=== PATIENT | male | born 1940 | race Caucasian/White ===

== ENCOUNTER 2017-02-14 17:30 | Inpatient (IN) | payer MEDICARE, BC, MEDICAID ==
[~2017-02-14] VITALS: Ht 172.7 cm; Wt 79.4 kg
--- NOTE | ~2017-02-14 | HP ---
PATIENT'S NAME: ANICETO BRAR [facility] AGE: 76 Y [address] ROOM: [id number] [place], [place] [address] [facility] ADMIT DATE: 02/14/2017 History & Physical DISCHARGE DATE: FAMILY PHYSICIAN: PHYSICIAN, UNKNOWN ATTENDING PHYSICIAN: Shahzad Russ DATE OF SERVICE: CHIEF COMPLAINT: Tarry stools. HISTORY OF PRESENT ILLNESS: The patient is a 76-year-old male who has been transferred to [facility] from [place]. He has an extensive past medical history. Most significant is for history of a previous GI bleed from small bowel AV malformations, which were endoscopically treated at [facility] several years ago. He also has a past medical history of DVT/PE and was on anticoagulation up until 1 week ago. At that point, he noted black tarry stools and was also noted to have a hemoglobin in the 7s, which is below his baseline of 10 to 11. At that point, his PCP discontinued his Coumadin and gave him a transfusion. This was about 5 days ago. He received 2 units. Today, he returned to hospital in [place] and was found to have a persistently low hemoglobin of 7.1. This was originally from hemoglobin of 7.3, after which he got the 2 units. He received 2 additional units of PRBCs and was transferred to [facility]. Here, his most latest hemoglobin is 8.3. The patient endorses bloody and watery stools as well as foul-smelling flatus. Denies any chest pain, but does admit to some weakness with exertion. No chest pain, nausea, vomiting, or diarrhea. No syncope. REVIEW OF SYSTEMS: All systems have been reviewed and negative aside from pertinent positives mentioned above. PAST MEDICAL HISTORY: 1. End-stage renal disease, on dialysis, Tuesdays, , and Fridays, this is due to cyclosporine toxicity. 2. 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 3. Questionable myelodysplastic syndrome. 4. Chronic anemia, multifactorial. 5. Status post pacemaker. 6. Atrial fibrillation. 7. DVT. 8. Long-term use of anticoagulation. 9. Coronary artery disease, status post 4-vessel CABG. PATIENT'S NAME: ANICETO BRAR [facility] AGE: 76 Y [address] ROOM: [place] [address] LOCATION: GPCU ADMIT DATE: 02/14/2017 History & Physical DISCHARGE DATE: FAMILY PHYSICIAN: PHYSICIAN, UNKNOWN ATTENDING PHYSICIAN: Shahzad Russ 10. Status post shoulder replacement. SOCIAL HISTORY: The patient is and has no active toxic habits. FAMILY HISTORY: Reviewed and is noncontributory due to advanced age and multiple medical problems. CURRENT MEDICATIONS: 1. Extra-Strength Tylenol. 2. Allopurinol. 3. B2 vitamin. 4. Cyclosporine 100 b.i.d. 5. Colace. 6. Levothyroxine 100. 7. Melatonin. 8. Multivitamin. 9. Pantoprazole. 10. Rosuvastatin. 11. Vitamin D3 complex. PHYSICAL EXAMINATION: VITAL SIGNS: Temperature 97.8, pulse is 63, respirations 16, blood pressure 107/62, and satting 100% on room air. GENERAL: Well-developed, well-nourished elderly male, in no acute distress. NEUROLOGICAL: Exam is nonfocal. EYES: Exam shows pupils are equal and reactive to light. LYMPHATICS: No cervical lymphadenopathy. ENDOCRINE: Exam shows no thyromegaly. LUNGS: Clear to auscultation. HEART: Rate is irregular with no appreciable murmurs, gallops, or rubs. ABDOMEN: Soft, nontender, nondistended. : No costovertebral angle tenderness. VASCULAR: A 2+ pedal pulses. MUSCULOSKELETAL: Exam is unremarkable. SKIN: Warm and dry. PSYCHIATRIC: Reveals appropriate mood, cognition, and affect. NEUROLOGIC: Exam is nonfocal. LABORATORY DATA: Studies available so far are a complete metabolic panel significant for a BUN of 55, creatinine of 5.1, CBC with a white count of 5.8, hemoglobin of 8.3, platelets of 178, unremarkable differential. PATIENT'S NAME: ANICETO BRAR [facility] AGE: 76 Y [address] ROOM: [address] [address] LOCATION: GPCU ADMIT DATE: 02/14/2017 History & Physical DISCHARGE DATE: FAMILY PHYSICIAN: PHYSICIAN, UNKNOWN ATTENDING PHYSICIAN: Shahzad Russ ASSESSMENT AND PLAN: This is a 76-year-old male with suspected lower gastrointestinal bleed. The patient will be admitted to PCU. We will repeat his hemoglobin in the morning. We will start him on intravenous PPIs. We will request a Gastroenterology consultation in the morning and keep him n.p.o. in case an esophagogastroduodenoscopy is contemplated. 1. End-stage renal disease. We will get a Nephrology consultation as the patient is due for dialysis tomorrow. 2. Long-term use of anticoagulants. We will hold that in the setting of gastrointestinal bleed. 3. Cyclosporine for liver transplant and we will continue that. Additional management will depend on clinical course. Time dedicated to this patient encounter is 35 minutes. MD KENA MAGALLON/juan /[id number] D: 449 T: 020 HISTORY & PHYSICAL
--- NOTE | ~2017-02-14 | CON ---
PATIENT'S NAME: ANICETO BRAR [facility] AGE: 76 Y [address] ROOM: [place] [address] LOCATION: GPCU ADMIT DATE: 02/14/2017 Consultation DISCHARGE DATE: FAMILY PHYSICIAN: PHYSICIAN, UNKNOWN ATTENDING PHYSICIAN: Shahzad Russ DATE OF CONSULTATION: 02/15/2017 REFERRING PHYSICIAN: Charlotte Rocha REQUESTING PHYSICIAN: Shahzad Russ MD REASON FOR CONSULTATION: End-stage renal failure. The patient is due for dialysis treatment. HISTORY OF PRESENT ILLNESS: The patient is a 76-year-old white male with end-stage renal failure from chronic use of cyclosporine and cyclosporine nephrotoxicity. He is status post liver transplantation. He has been on hemodialysis on Sunday, , and Sunday in [place], [place]. The patient got admitted to the hospital with GI bleed. His hemoglobin was down to 7.9. I have been asked to see him because he is due for his routine dialysis treatment. REVIEW OF SYSTEMS: GENERAL: He denies any fever, chills, or rigors. HEENT: Denies any sore throat or sinus congestion. CARDIOVASCULAR: Denies any chest pain. RESPIRATORY: Denies any shortness of breath, cough, or wheezing. GASTROINTESTINAL: He has been noticing blood in the stool. GENITOURINARY: Denies any dysuria. He is a dialysis patient. MUSCULOSKELETAL: Denies any joint pain or swelling. SKIN: Denies any allergies or hay fever. ENDOCRINE: Denies any heat or cold intolerance. PSYCHIATRIC: Denies any sadness, crying spells, poor concentration, or panic attack. ALLERGIES: ALLERGIC TO NYLON SUTURES. MEDICATIONS: 1. Levothyroxine 100 mcg a day. 2. Pantoprazole 40 mg a day. 3. Rosuvastatin 10 mg a day. 4. Stool softener. 5. Docusate sodium 250 mg a day. PATIENT'S NAME: ANICETO BRAR [facility] AGE: 76 Y [address] ROOM: [address] [address] LOCATION: GPCU ADMIT DATE: 02/14/2017 Consultation DISCHARGE DATE: FAMILY PHYSICIAN: PHYSICIAN, UNKNOWN ATTENDING PHYSICIAN: Shahzad Russ 6. Cyclosporine 100 mg twice a day. 7. Allopurinol 200 mg every day. 8. Vitamin B complex once a day. 9. Melatonin 3 mg a day. 10. Acetaminophen with diphenhydramine one tablet p.r.n. 11. Multivitamin every day. PAST MEDICAL HISTORY: End-stage renal failure, on hemodialysis, cyclosporine nephrotoxicity, status post liver transplantation, coronary artery disease, blood loss anemia, GI bleed, deep vein thrombosis, hypothyroidism, chronic atrial fibrillation, and history of skin cancer. PAST SURGICAL HISTORY: Left upper arm primary radiocephalic AV fistula placement by Dr. Holland in 2011, back surgery in 1985, coronary artery bypass grafting in 1999, pacemaker implantation in 2013, cardiac catheterization, kidney stone removal, rotator cuff repair, ventral hernia repair, sinus surgery, cataract extraction, teeth extraction, total shoulder replacement, liver transplantation, and skin biopsies. FAMILY HISTORY: Sister had uterine cancer. Another sister had breast cancer. Father of myocardial infarction. SOCIAL HISTORY: The patient lives at home. He is . The patient also is retired. He smoked occasionally cigars for 25 years. Currently, a nonsmoker. PHYSICAL EXAMINATION: GENERAL APPEARANCE: A 76-year-old, thin, white male; lying in the hospital bed; not in acute distress. VITAL SIGNS: Temperature 97.7, pulse 70, systolic blood pressure 118 and diastolic 68. HEENT: Head: Normocephalic. Pupils are round and equal. Normal eyelids and pale conjunctivae. Oral cavity clear. Moist mucosa. Poor dentition. NECK: Trachea is central. No thyromegaly. Flat jugular veins. CARDIAC: Heart sounds are audible in all the areas. No gallop or murmur. Pulses irregularly irregular. LUNGS: Bilaterally clear to auscultate anteriorly. ABDOMEN: Soft and nontender. Cannot palpate any liver or spleen. EXTREMITIES: He has no clubbing or cyanosis. SKIN: No sign of vasculitis. LYMPHATIC: I did not examine the lymphatics. HIGHER PSYCHIATRIC FUNCTION: He has normal speech and memory. The patient PATIENT'S NAME: ANICETO BRAR [facility] AGE: 76 Y [address] ROOM: [place] [address] [facility] ADMIT DATE: 02/14/2017 Consultation DISCHARGE DATE: FAMILY PHYSICIAN: PHYSICIAN, UNKNOWN ATTENDING PHYSICIAN: Smolik,Shahzad J has a left forearm AV fistula with pulse and thrill. LABORATORY DATA: Sodium 139, potassium 4.4, chloride 98, bicarbonate of 30, calcium of 81, and BUN of 55. Albumin of 2.6. Phosphorus of 4.5. Hemoglobin 7.9, hematocrit 24.2, WBC 5.8, and platelet count 163. ASSESSMENT: 1. End-stage renal failure. The patient is due for dialysis treatment. 2. Blood loss anemia. 3. Gastrointestinal bleed. 4. Status post liver transplant. 5. Cyclosporine nephrotoxicity. 6. Hypothyroidism. PLAN: I am going to arrange for his dialysis as soon as possible. He will be dialyzing for 4 hours on 2K 2.2 calcium bath. We will plan to ultrafiltrate about 1 to 2 L without dropping his systolic blood pressure. Since his hemoglobin is low, we are going to increase his erythropoietin to 10,000 subcutaneous or IV with each treatment. I will check his iron studies. I would like to thank Dr. Russ for allowing me to participate in this patient's care. M MD JACKI HERNANDEZ/juan /[id number] d: 02/15/17 1702 t: 02/16/17 1240, CONSULTATION REPORT
--- NOTE | ~2017-02-14 | OR ---
PATIENT'S NAME: ANICETO BRAR [facility] AGE: 76 Y [address] ROOM: [place] [address] LOCATION: GPCU ADMIT DATE: 02/16/2017 OR/Procedure Report DISCHARGE DATE: FAMILY PHYSICIAN: Tanner Zamorano MD ATTENDING PHYSICIAN: Shahzad Russ SURGEON: Henna Whaley MD SENIOR FINANCIAL CONSULTANT: DATE OF PROCEDURE: 02/16/2017 PROCEDURE PERFORMED: Esophagogastroduodenoscopy with biopsy. INDICATIONS FOR PROCEDURE: Suspected bleeding, history of AVMs. MEDICATIONS: Please see Anesthesiology record for details. CONSENT: The risks/benefits/alternatives were discussed and the patient or his power of dixonac operator expressed understanding and agreed to proceed. Informed consent was obtained and placed in the chart. Time-out was completed prior to starting the procedure. PROCEDURE: Patient was placed in the left lateral decubitus position. One- lead EKG monitoring was used along with intermittent blood pressure monitoring and pulse oximetry. Bite block was placed in the patient's mouth. The above medications were given and titrated to response. Once adequate sedation was completed, the endoscope was passed through the patient's mouth into the posterior oropharynx. The endoscope was then passed into the esophagus, stomach and duodenal bulb. The duodenum was examined through the third portion. The endoscope was then withdrawn into the stomach. In the stomach, retroflexion was completed. The scope was then straightened and withdrawn from the patient. The patient tolerated the procedure well. There were no complications. SUMMARY OF FINDINGS: 1. Normal esophagus. 2. Gastric polyps, three. The largest of which was biopsied. 3. Normal duodenum. 4. No blood seen throughout the upper GI tract. ASSESSMENT AND PLAN: Rectal bleeding and anemia: Nothing seen on esophagogastroduodenoscopy, we will proceed with colonoscopy. Henna WHALEY MD PATIENT'S NAME: ANICETO BRAR [facility] AGE: 76 Y [address] ROOM: [place] [address] LOCATION: GPCU ADMIT DATE: 02/16/2017 OR/Procedure Report DISCHARGE DATE: FAMILY PHYSICIAN: Tanner Zamorano MD ATTENDING PHYSICIAN: Shahzad Russ/juan /[id number] d: 02/16/171952 t: 03/23/17 0843, OPERATIVE SUMMARY
--- NOTE | ~2017-02-14 | CON ---
PATIENT'S NAME: ANICETO BRAR [facility] AGE: 76 Y [address] ROOM: [id number] [place], [place] [address] LOCATION: GPCU ADMIT DATE: 02/14/2017 Consultation DISCHARGE DATE: FAMILY PHYSICIAN: PHYSICIAN, UNKNOWN ATTENDING PHYSICIAN: Shahzad Russ DATE OF CONSULTATION: 02/15/2017 REFERRING PHYSICIAN: Charlotte Rocha REASON FOR CONSULTATION: GI bleed. HISTORY OF PRESENT ILLNESS: This is a very pleasant 76-year-old male, who was transferred from [facility] to [facility]. The patient has an extensive past medical history significant for history of upper, lower, and small bowel AV malformation bleeding that was treated endoscopically at [facility] in 2011. The patient is also status post liver transplant, completed in 1992 as he does admit to previous alcohol use though likely contracted hepatitis C from blood transfusion completed in the . The patient has done well status post transplant. He does state for the past 3 weeks he has been experiencing blood in his stool. When asked for description, he did note that originally it was diarrhea with a dark brown color. At that time, he began taking Pepto-Bismol that did turn his stools more black. He then started seeing more bright red blood. When flushing the stool. He denies any abdominal pain associated with this. He returned to the hospital in [place]. Today, was found to have a hemoglobin of 7.1. He previously was on Coumadin as this was stopped last in lieu of the patient's bloody stools. The patient had previously received 2 units of packed red blood cells for hemoglobin of 7.32 with continued blood loss. When he was transferred to [facility], he received another 2 units of packed red blood cells. He denies any current chest pain, chest pressure. He does admit to weakness with exertion. He denies any associated nausea, vomiting, or abdominal pain. PAST MEDICAL HISTORY: History of upper GI bleed secondary to gastritis, history of small bowel AV malformation, history of large colon bleed though these details are unavailable to me, end-stage renal disease, on dialysis secondary to cyclosporine toxicity, status post liver transplant due to hepatitis C, completed in 1992, questionable myelodysplastic syndrome, chronic anemia, multifactorial, status post pacemaker, atrial fibrillation, DVT on long-term use of coagulation being Coumadin with the last dose being last , coronary artery disease, status post 4-vessel CABG. PAST SURGICAL HISTORY: PATIENT'S NAME: ANICETO BRAR [facility] AGE: 76 Y [address] ROOM: [id number] [place], [place] [address] [facility] AD[facility] DATE: 02/14/2017 Consultation DISCHARGE DATE: FAMILY PHYSICIAN: PHYSICIAN, UNKNOWN ATTENDING PHYSICIAN: Shahzad Russ Status post shoulder replacement, multiple upper endoscopies and colonoscopies with the last being 2 to 4 years ago, status post liver transplant, status post pacemaker, CABG 4-vessel. SOCIAL HISTORY: The patient is . He denies any alcohol use for the past 30 years. He denies any illicit drug use or tobacco use. FAMILY HISTORY: The patient denies any family history of gastrointestinal diseases to his knowledge. ALLERGIES: NYLON SUTURES. CURRENT MEDICATIONS: Please refer to the medication administration record. REVIEW OF SYSTEMS: A 10-point review of systems was completed. All were negative except for those identified in the history of present illness. PHYSICAL EXAMINATION: GENERAL: A very pleasant 76-year-old male, lying in bed, who appears to be in no acute distress. VITAL SIGNS: Temperature 97.7, pulse is 70, respirations of 15, blood pressure 118/68, oxygen saturation is 96% on room air. SKIN: [place], warm, dry. No jaundice. HEENT: Head is normocephalic and atraumatic. Pupils are equal, round, and reactive to light. Sclerae are clear. Nonicteric. Oral mucosa is pink and moist. No thyromegaly. NECK: Soft and supple. CARDIOVASCULAR: Regular. Normal S1, S2. RESPIRATORY: Respirations even and unlabored. LUNGS: Clear to auscultation. ABDOMEN: Soft, round, nontender, and nondistended. Bowel sounds positive x4 quadrants. MUSCULOSKELETAL: No muscle weakness or atrophy. EXTREMITIES: No clubbing, cyanosis, or edema. NEUROLOGIC: Grossly nonfocal. LABS AND DIAGNOSTICS: White blood cell count of 5.8, hemoglobin initially 8.3 with a decrease to 7.9 this morning, hematocrit of 24.2, platelet of 163. Chemistry panel includes a glucose of 100, BUN of 55, creatinine 5.1. Sodium 139, potassium of 4.5, chloride of 98, CO2 of 30. Albumin of 2.6, AST is 17, ALT of 17, alkaline PATIENT'S NAME: ANICETO BRAR [facility] AGE: 76 Y [address] ROOM: [id number] [place], [place] [address] [facility] AD[facility] DATE: 02/14/2017 Consultation DISCHARGE DATE: FAMILY PHYSICIAN: PHYSICIAN, UNKNOWN ATTENDING PHYSICIAN: Shahzad Russ phosphatase of 121, total bilirubin 0.9, phosphorus of 4.5. ASSESSMENT AND PLAN: Again, this is a very pleasant 76-year-old male with extensive past medical history including end-stage renal disease, currently on hemodialysis, status post liver transplant, chronic anemia as well as history of GI bleed. The patient has been on Coumadin, though states that the last dose was last secondary to noticeable blood in his stool for the past 3 weeks. It was discussed in depth with the patient regarding his history of GI bleed. At this time, we will go forth with upper endoscopy and colonoscopy for further evaluation. This most likely may be related to a lower gastrointestinal bleed though as well as his history of small bowel AV malformation though. Upper endoscopy and colonoscopy should be completed to rule out any obvious bleed. At this time, we given the patient soup prep for in preparation for the colonoscopy. Further recommendations to be given status post upper endoscopy and colonoscopy. The patient should be continued on PPI therapy at this time until the endoscopies are completed. Thank you for this consult. MELISSA CROWDER MD MMF/modl /[id number] d: 02/15/17 1556 t: 03/23/17 0845, CONSULTATION REPORT
--- NOTE | ~2017-02-14 | DS ---
PATIENT'S NAME: ANICETO BRAR [facility] AGE: 76 Y [address] ROOM: [address] [place], [place] [address] LOCATION: GPCU ADMIT DATE: 02/16/2017 Discharge Summary DISCHARGE DATE: 02/17/2017 FAMILY PHYSICIAN: Tanner Zamorano MD ATTENDING PHYSICIAN: Shahzad Russ ADMITTING DIAGNOSIS: Acute blood loss anemia secondary to lower gastrointestinal bleed. DISCHARGE DIAGNOSES: 1. Acute blood loss anemia secondary to lower gastrointestinal bleed. 2. Gastrointestinal bleed. SECONDARY DIAGNOSIS: 1. Persistent atrial fibrillation, present on admission. 2. Coronary artery disease, status post coronary artery bypass graft in the past, present on admission. 3. End-stage renal disease, present on admission. 4. Ischemic cardiomyopathy, compensated, present on admission. PROCEDURES: EGD and colonoscopy. Also hemodialysis. CONSULTATIONS: Nephrology and GI. HISTORY OF PRESENT ILLNESS: The patient is a 76-year-old male who has been transferred to our hospital from [place]. The patient has a past medical history significant for previous GI bleed from small bowel AV malformation, which was endoscopically treated at [facility] several years ago. He also has past medical history of paroxysmal AFib and DVT and was on anticoagulation until 1 week ago. The patient was noted to have tarry stool and low hemoglobin with hemoglobin of 7 from the baseline of 10. His Coumadin was discontinued by his primary care physician and was given blood transfusion. The patient was given multiple blood transfusions close to 4 in total at [facility] without improvement of his hemoglobin. The patient was also noted to have melanotic stool. The patient was transferred to our hospital for further care. HOSPITAL COURSE: The patient was admitted and had serial hemoglobin. The patient had EGD and colonoscopy on February 16, 2017. EGD was unremarkable. However, colonoscopy showed pinpoint AVM with bleed. The patient had an epi injection and a clip done on the site of AVM. No further bleeding was noted. The patient tolerated the procedure. The patient was transfused 1 unit of packed red blood cells during his admission. The patient was followed with serial hemoglobin. Serial hemoglobin was stable. The patient also has a history of persistent AFib and CAD, status post CABG. A long discussion was made with the patient. The patient elected to not be started on PATIENT'S NAME: ANICETO BRAR [facility] AGE: 76 Y [address] ROOM: [id number] [place], [place] [address] [facility] AD[facility] DATE: 02/16/2017 Discharge Summary DISCHARGE DATE: 02/17/2017 FAMILY PHYSICIAN: Tanner Zamorano MD ATTENDING PHYSICIAN: Shahzad Russ anticoagulation for now. The patient was started on aspirin. Discussed the case with GI, Dr. Whaley. Dr. Whaley okayed to start aspirin. Discussed about the risk of cessation of anticoagulation in the face of persistent AFib. The patient understands the risk and wants to evaluate the use of anticoagulation use with his primary care physician. To follow up with his primary care physician by next week. We will discharge the patient with repeat CBC as an outpatient. During his stay, the patient also had dialysis. CONDITION: Stable. DISPOSITION: Home. DISCHARGE MEDICATIONS: Please see medication list. DISCHARGE INSTRUCTIONS: To go to emergency department if the patient sees melanotic stool, dizzy, chest pain, and bloody stool. FOLLOW-UP: Follow up with primary care physician and GI. Greater than 30 minutes was spent on discharge planning. MD SHANNEN DUMONT/juan /[id number] d: 02/18/17 0317 t: 03/09/17 1523, DISCHARGE SUMMARY
--- NOTE | ~2017-02-14 | OR ---
PATIENT'S NAME: ANICETO BRAR [facility] AGE: 76 Y [address] ROOM: [id number] [place], [place] [address] LOCATION: GPCU ADMIT DATE: 02/16/2017 OR/Procedure Report DISCHARGE DATE: FAMILY PHYSICIAN: Tanner Zamorano MD ATTENDING PHYSICIAN: Shahzad Russ SURGEON: Henna Whaley MD SAW SUPERINTENDENT: DATE OF PROCEDURE: 02/16/2017 PROCEDURE PERFORMED: Colonoscopy with polypectomy and control of bleeding. MEDICATIONS: Please see Anesthesiology record for details. CONSENT: The risks/benefits/alternatives were discussed and the patient or his power of lithographers printer expressed understanding and agreed to proceed. Informed consent was obtained and placed on the chart. Time-out was completed prior to starting the procedure. PROCEDURE: Patient was placed in the left lateral decubitus position. One- lead EKG monitoring was used along with intermittent blood pressure monitoring and pulse oximetry. The above medications were given and titrated to response. Once adequate sedation was completed, rectal exam was performed. The colonoscope was then passed through the rectum, into the sigmoid colon. The scope was then passed through the descending, transverse and ascending colon. The scope was then passed into the cecum. The cecum was identified by the ileocecal valve and appendiceal orifice. The scope was then withdrawn. On withdrawal, the mucosa of the colon was examined. In the rectum, retroflexion was completed. The scope was then withdrawn from the patient. The patient tolerated the procedure well. There were no complications. SUMMARY OF FINDINGS: 1. A 4 mm sessile polyp located on the appendiceal orifice in the cecum. This was removed using the biopsy forceps. 2. Diverticulosis, mild. Scattered diverticula seen throughout the colon. The most prominent were in the sigmoid colon. 3. Blood was seen through up until from the rectum to the transverse colon, and then there was no blood seen on the right colon. 4. Sigmoid polyp 4 mm. Not removed, given the patient's bleeding. 5. About 5 cm distal to the polyp in the sigmoid colon, there was a pinpoint AVM that was actively oozing bright red blood. This was adjacent to a diverticula. Hemoclip was placed successfully without complications. This seemed to stop the bleeding. Epinephrine was injected to ensure no further bleeding. Hemostasis was achieved. The scope was then withdrawn from the colon. PATIENT'S NAME: ANICETO BRAR [facility] AGE: 76 Y [address] 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 I do not think this was a true diverticular bleed. The bleeding has stopped with hemoclip and epinephrine and I expect the patient to do well. We will advance diet as tolerated. Okay to stop octreotide drip. I suspect he will go home tomorrow if hemoglobin is stable. J MD KORY ENRIQUEZ/juan /[id number] d: 02/16/172023 t: 03/23/17 0848, OPERATIVE SUMMARY
[~2017-02-14 17:30] MED LIST changes: -ASPIRIN (CHILDR81 MG PO; -ICAPS PLUS1 EACH PO; -ICAPS TABLET1 EACH PO
--- NOTE | 2017-02-14 20:36 | NUR ---
Patient is a direct admit from [facility] for GI Bleed. 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 Hgb prior to unit at [facility] 7.1 post unit 7.3. After his paper route he went back and hgb was 7.1 again, this is when [facility] consulted for transfer. Patient arrives with 1 unit PRBC infusing and finished once on PCU. Patient is A/Ox3. VSS. Initial assessment completed. Patient's only allergy is to nylon sutures which cause him to itch. notified of patient arrival to floor will come to assess and write orders.
[2017-02-14] MEDS ORDERED: ICAPS PLUS1 EACH PO ×2 (21:21→21:25)
[2017-02-14] MEDS ORDERED: ICAPS TABLET1 EACH PO (21:24)
[2017-02-14] MEDS ORDERED: RENA-VITE RX T1 EACH PO (21:27)
[2017-02-14 22:58] LABS: BASOPHIL % 0.3 %; EOSINOPHIL # 0.1 K/uL (0.0-0.5); EOSINOPHIL % 2.2 %; HEMATOCRIT 25.8 % (37.0-53.0); HEMOGLOBIN 8.3 g/dL (11.0-16.0); IMMATURE GRANULOCYTE % 0.3 %; LYMPHOCYTE # 1.1 K/uL (0.8-4.0); LYMPHOCYTE % 19.4 %; MCH 33.1 pg (27.0-34.0); MCHC 32.2 gm/dL (32.0-36.5); MCV 102.8 fl (83.0-98.0); MONOCYTE % 17.3 %; MPV 10.5 fl (9.4-12.4); NEUTROPHIL # (ANC) 3.5 K/uL (1.4-9.0); NEUTROPHIL % 60.5 %; NRBC % 0 /100WBC (0-0.00); PLATELET COUNT 178 K/uL (150-450); RBC 2.51 M/uL (3.50-5.50); RDW-CV 20.3 % (11.9-14.6); WBC 5.8 K/uL (4.0-11.0)
[2017-02-14 23:16] LABS: ALBUMIN 2.6 gm/dL (3.5-5.0); ANION GAP 15.5 (10.0-19.0); CALCIUM 8.1 mg/dL (8.5-10.5); MAGNESIUM 2.2 mg/dL (1.8-2.6); PHOSPHORUS 4.5 mg/dL (2.5-4.9); POTASSIUM 4.5 mMol/L (3.7-5.1); TOTAL BILIRUBIN 0.9 mg/dL (0.0-1.5); TOTAL PROTEIN 6.2 g/dL (6.0-8.4)
[2017-02-14 23:17] LABS: CREATININE 5.1 mg/dL (0.6-1.3)
--- NOTE | 2017-02-15 05:25 | NUR ---
Significant Event:A/Ox3. VSS on RA. Small smear of marroon stool x1. No c/o pain. L)arm fistula with +T/B. HR paced with underlying a-fib. LS clear to cl/dim. GI consult, Nephrology consult, and WOC consult placed for today. NPO since midnight in case EGD/Colonoscopy. HGB on admit 8.3. PIV to R)FA infusing NS @ 50ml/h. Follow up:Continue with POC.
[2017-02-15 06:14] LABS: BASOPHIL % 0.3 %; EOSINOPHIL # 0.2 K/uL (0.0-0.5); EOSINOPHIL % 2.6 %; HEMATOCRIT 24.2 % (37.0-53.0); IMMATURE GRANULOCYTE % 0.2 %; LYMPHOCYTE # 0.9 K/uL (0.8-4.0); LYMPHOCYTE % 15.9 %; MCH 33.8 pg (27.0-34.0); MCHC 32.6 gm/dL (32.0-36.5); MCV 103.4 fl (83.0-98.0); MONOCYTE % 16.8 %; MPV 10.7 fl (9.4-12.4); NEUTROPHIL # (ANC) 3.7 K/uL (1.4-9.0); NEUTROPHIL % 64.2 %; NRBC % 0 /100WBC (0-0.00); PLATELET COUNT 163 K/uL (150-450); RBC 2.34 M/uL (3.50-5.50); RDW-CV 20.3 % (11.9-14.6); WBC 5.8 K/uL (4.0-11.0)
[2017-02-15 06:17] LABS: HEMOGLOBIN 7.9 g/dL (11.0-16.0)
[2017-02-15 09:56] LABS: INR - (THERAPEUTIC) 1.24 (0.92-1.07)
--- NOTE | 2017-02-15 14:48 | NUR ---
Significant Event: A/O. VSS on RA. Denies pain. 2 sm bloody BMs and 1 moderate BM with clots. Patient denies any dizzyness and lightheadedness. Dialysis today, no fluid removed. Plan for upper and lower endoscopy tomorrow. Follow up:
[2017-02-15 15:27] LABS: HEMATOCRIT 26.3 % (37.0-53.0); HEMOGLOBIN 8.4 g/dL (11.0-16.0)
[2017-02-15 23:13] LABS: HEMATOCRIT 26.2 % (37.0-53.0); HEMOGLOBIN 8.2 g/dL (11.0-16.0)
--- NOTE | 2017-02-16 04:51 | NUR ---
Significant Event: A/0X3. RESTED IN BED ALL OF SHIFT. SBA UP TO BEDSIDE COMMODE. TURNS SELF. AFEBRILE. VSS ON RA. DENIES PAIN. IV TO R) FA WITH OCTREOTIDE RUINNING AT 50 MCG/H AND NS @ 50 ML/H. IV TO R) HAND SL. BEEN NPO SINCE 0400 FOR EDG AND COLONOSCOPY THIS AM WITH DR. OLGUIN. PERMITS PRINTED BUT STILL NEED SIGNED. LAST SUPREP WAS GIVEN AT 0300. PATIENT HAD 6 ALISON BLOODY STOOLS WITH CLOTS. LAST HGB WAS 8.2.NO URINE OUTPUT. FISTULA TO L) LOWER ARM. BRUIT AND THRILL+. Follow up: CONTINUE WITH PLAN OF CARE. MONITOR HGB. PROCEDURE THIS AM.
[2017-02-16 07:14] LABS: HEMATOCRIT 25.5 % (37.0-53.0); HEMOGLOBIN 8.1 g/dL (11.0-16.0)
[2017-02-16 15:08] LABS: HEMATOCRIT 25.5 % (37.0-53.0); HEMOGLOBIN 8.1 g/dL (11.0-16.0)
--- NOTE | 2017-02-16 15:33 | NUR ---
Introduced self and CM role to Marlo. He tells me that he lives at home alone in [place] and he plans on returning there when he is able to. He does all of his own pills at home and will continue to do so. He has a FWW and a cane that he uses at baseline. Marlo also tells me that he does dialysis 3 times per week as an outpatient in [place] and he drives himself there as it "Is only a few blocks from my house." He has no concerns about going home. I asked if he has family or a friend that could come and pick him up to take him home, but He tells me he has no one to pick him up for a ride home tomorrow, so I set up transportation through [employer] ([phone]). [employer], ([phone], is the direct # for company picking him up they are to be here on Sunday at 1400. I shared all of this with Marlo, as well as his primary care RN Apolonia. I also left detailed sticky notes on the front of his chart for anyone else that had questions or concerns re: his transportation to home. He also tells me that he might be able to get his brother in law to come and get him if all else fails. No other questions, needs or concerns. CM to continue to follow and assist. Talked with DR. Friedman in the hallway, he states from his standpoint, Marlo will be able to go home tomorrow. I phoned down to dialysis and talked with Tennille, asked that they dialysis Marlo as soon as they can in the morning as I have transportation set up for 1400 tomorrow.
--- NOTE | 2017-02-16 18:50 | NUR ---
Significant Event:Patient had EGD/Colonoscopy today. Biopsies done. Did find a bleed in Sigmoid colon, was caturized and injected with epi. No c/o pain. No bloody stools. Hgb holding at 8.1. Follow up:Monitor Hgb, rectal bleeding
--- NOTE | 2017-02-16 19:06 | NUR ---
D:Patient left for EGD/Colonoscopy at 0935 per wheelchair. He returned at 1310. Report was called at 1250. Patient did have a sigmoid bleed that was cauterized and injected. He had some biopsies done. No c/o pain. IV of NS infusing at 50ml/hr. P:Post op monitoring
[2017-02-16 23:16] LABS: HEMATOCRIT 24.1 % (37.0-53.0); HEMOGLOBIN 7.7 g/dL (11.0-16.0)
--- NOTE | 2017-02-17 05:51 | NUR ---
Significant Event: A/0X3. RESTED IN BED ALL OF SHIFT. TURNS SELF. AFEBRILE. VSS ON RA. DENIES PAIN. IV TO R) FA AND R) HAND SL. HGB AT 2300 WAS 7.7. DOCTOR CALLED AND 1 UNIT OF PRBCS TRANSFUSED. NEXT H/H IS AT 0700. NO URINE OUTPUT. FISTULA TO L) FA SL. DIALYSIS TODAY? NO BLOODY STOOLS THIS SHIFT. POSSIBLY D/C HOME TODAY? Follow up: CONTINUE WITH PLAN OF CARE.
[2017-02-17 07:28] LABS: HEMATOCRIT 26.7 % (37.0-53.0); HEMOGLOBIN 8.7 g/dL (11.0-16.0)
[2017-02-17 09:30] LABS: ALBUMIN 2.6 gm/dL (3.5-5.0); ANION GAP 17.3 (10.0-19.0); CALCIUM 8.4 mg/dL (8.5-10.5); PHOSPHORUS 4.5 mg/dL (2.5-4.9); POTASSIUM 4.3 mMol/L (3.7-5.1)
--- NOTE | 2017-02-17 14:18 | NUR ---
Occupational therapy order received and patient's chart reviewed. Patient out of room for dialysis on first attempt and preparing for discharge second attempt. [place], OTR/L 02/17/17
[2017-02-17] MEDS ORDERED: ASPIRIN (CHILDR81 MG PO (14:24)
--- NOTE | 2017-02-17 16:47 | NUR ---
PATIENT DISMISSED TODAY AFTER DIALYSIS TO HOME. PATIENT HAD RIDE ARRANGED WITH INTELIRIDE SERVICE. PATIENT ASSISTED TO VEHICLE BY RN PER W/C. REVIEWED DISMISSAL INSTRUCTIONS WITH PATIENT, HE VERBALIZED UNDERSTANDING. GAVE PATIENT EDUCATION SHEETS ON NEW MEDICATION AND GI BLEEDS.
== END 2017-02-17 14:40 | disposition disaster alternative care site (69) | DRG 377 ==
LOC: GPCU 19:46
PROVIDERS: Internal Medicine; Internal Medicine Nephrology; Registered Nurse; ADMIT Family Medicine
PROC: 5A1D60Z (ICD-10-PCS; principal; 2017-02-15)
PROC: 0DBH8ZX Excision of Cecum, Via Natural or Artificial Opening Endoscopic, Diagnostic (ICD-10-PCS; 2017-02-16)
PROC: 0DB68ZX Excision of Stomach, Via Natural or Artificial Opening Endoscopic, Diagnostic (ICD-10-PCS; 2017-02-16)
PROC: 0W3P8ZZ Control Bleeding in Gastrointestinal Tract, Via Natural or Artificial Opening Endoscopic (ICD-10-PCS; 2017-02-16)
PROC: 30233N1 Transfusion of Nonautologous Red Blood Cells into Peripheral Vein, Percutaneous Approach (ICD-10-PCS; 2017-02-17)
DX: K55.21 Angiodysplasia of colon with hemorrhage (principal); N18.6 End stage renal disease; I48.1 Persistent atrial fibrillation; Z94.4 Liver transplant status; I25.5 Ischemic cardiomyopathy; D62 Acute posthemorrhagic anemia; I25.10 Atherosclerotic heart disease of native coronary artery without angina pectoris; Z99.2 Dependence on renal dialysis; E03.9 Hypothyroidism, unspecified; D12.5 Benign neoplasm of sigmoid colon; K31.7 Polyp of stomach and duodenum; D12.0 Benign neoplasm of cecum; K57.30 Diverticulosis of large intestine without perforation or abscess without bleeding; Z95.1 Presence of aortocoronary bypass graft; Z86.718 Personal history of other venous thrombosis and embolism; D64.89 Other specified anemias; Z95.0 Presence of cardiac pacemaker; Z96.619 Presence of unspecified artificial shoulder joint; Z85.828 Personal history of other malignant neoplasm of skin; Z87.891 Personal history of nicotine dependence
CPT/HCPCS: C9113; G0378; J0171; J1756; J2354; J7030; J7050; J7502; P9058; Q4081

== ENCOUNTER → 2017-02-14 | Outpatient (CLI) | payer MEDICARE, BC, MEDICAID ==
[~2017-02-14] MED LIST: ASPIRIN (CHILDR81 MG PO; COUMADIN **IA2.5 MG PO; COUMADIN6 MG PO; CRESTOR10 MG PO; FERGON325 M1 PO; ICAPS PLUS1 EACH PO; ICAPS TABLET1 EACH PO; LEVOTHROID (S100 MCG PO; MAG-OX-400(241400 MG PO; MELATONIN3 MG PO; NEORAL100 M1 PO; NEPHROCAPS1 CAP PO; PROTONIX40 MG PO; RENA-VITE RX T1 EACH PO; SODIUM BICARBO650 MG PO; STOOL SOFTENER250 MG PO; TYLENOL PM EX-1 EACH PO; VANCOMYCIN IV; ZYLOPRIM100 MG PO
== END ==
LOC: GAMB 17:58
DX: K92.1 Melena (principal); I48.91 Unspecified atrial fibrillation; E78.5 Hyperlipidemia, unspecified; I12.0 Hypertensive chronic kidney disease with stage 5 chronic kidney disease or end stage renal disease; E86.1 Hypovolemia; N18.6 End stage renal disease; D64.9 Anemia, unspecified; Z79.899 Other long term (current) drug therapy
CPT/HCPCS: A0425; A0426